=== PATIENT | male | born 1950 | race Caucasian/White ===

== ENCOUNTER → 2017-02-27 | Outpatient (CLI) | payer MEDICARE, BC ==
[~2017-02-27] MED LIST: NO HOME MEDICATIONS
== END ==
LOC: COL.RAD 12:50
DX: J34.89 Other specified disorders of nose and nasal sinuses (principal); R43.0 Anosmia; K11.20 Sialoadenitis, unspecified; R07.89 Other chest pain
CPT/HCPCS: Q9967

== ENCOUNTER → 2017-03-26 | Outpatient (CLI) | payer MEDICARE, BC ==
[~2017-03-26] VITALS: Ht 175.3 cm; Wt 86.7 kg
[2017-03-26 09:15] VITALS: BP 141/86; PULSE 66
[2017-03-26 10:40] VITALS: BP 137/84; PULSE 58
== END ==
LOC: COL.RAD 08:55
DX: E04.1 Nontoxic single thyroid nodule (principal)